=== PATIENT | female | born 1950 ===

== ENCOUNTER 2018-11-17 06:18 | Day surgery (SDC) | payer MEDICARE, OTHER ==
[2018-11-17 06:52] VITALS: BMI 21.4
[2018-11-17 07:04] VITALS: O2SAT 100
--- NOTE | 2018-11-17 09:10 | CP.SDSHP ---
Same Day Surgery H & P - History Proposed Procedure: COLONSCOPY Pre-Op Diagnosis: SEE NOTES - Previous Medical/Surgical History Cardiac: Hypertension Neuro: Backaches, Other Misc: Other Pain: 4.Moderate Pain Previous Surgical History: S/P POLYPECTOMY BY COLONSCOPY - Allergies Allergies: Allergies diphenhydramine Allergy (Verified 11/17/18 07:20) HEADACHE - Physical Exam General Appearance: N Vital Signs: Vital Signs 11/17/18 06:45 Temperature 96.4 F L Pulse Rate 74 Respiratory 16 Rate Blood Pressure 142/80 O2 Sat by Pulse 100 Oximetry Mental Status: Alert & Oriented x3 Neuro: WNL Heart: Other Lungs: WNL GI: Other - {Optional Preform as Required} Breast: WNL Abdomen: Other Rectal: Other Integument: WNL : WNL Ortho: Other ENT: WNL - Impression Pt. Evaluated Today:Candidate for Anesthesia & Procedure: Yes - Date & Time Time: 09:10 Short Stay Discharge - Short Stay Discharge Admitting Diagnosis/Reason for Visit: COLON POLYP, WEIGHT LOSS Disposition: HOME/ ROUTINE
[2018-11-17] MEDS ORDERED: Propofol 10 mg/ml Inj (20 ML) ONE (09:11)
[2018-11-17] MEDS ORDERED: Belladonna-Phenobarbital PO ONE ×2 (09:15→10:30)
[2018-11-17] MEDS ORDERED: Lidocaine Hydrochloride 5 ML INJ ONE (09:49)
[2018-11-17 09:50] VITALS: TEMP 96
[2018-11-17 10:28] VITALS: RESP 13
[2018-11-17 10:59] VITALS: BP 160/83; PULSE 68
== END 2018-11-17 10:49 | disposition home or self-care (01) ==
LOC: C.ENDO 06:18
PROVIDERS: ATTEND Specialist
DX: Z86.010 Personal history of colon polyps (principal); R63.4 Abnormal weight loss; K58.9 Irritable bowel syndrome, unspecified; K60.2 Anal fissure, unspecified; K64.8 Other hemorrhoids
CPT/HCPCS: 45380; 82948; 88305; J2704